=== PATIENT | male | born 1995 | race Two or more races ===

== ENCOUNTER 2021-02-23 16:26 | Emergency (ER) | payer MEDICAID ==
[~2021-02-23] VITALS: Ht 182.9 cm; Wt 131.5 kg
[2021-02-23 16:41] VITALS: BP 125/71
== END 2021-02-23 17:45 | disposition left against medical advice (07) ==
LOC: ER 16:26
DX: R10.9 Unspecified abdominal pain (principal); R11.0 Nausea; Z53.21 Procedure and treatment not carried out due to patient leaving prior to being seen by health care provider

== ENCOUNTER 2023-06-29 07:25 | Inpatient (IN) | payer MEDICAID, OTHER ==
[~2023-06-29] VITALS: Ht 180.3 cm; Wt 136.3 kg
[2023-06-29] MEDS: methylPREDNISolone SOD SUCC 125 MG/2 ML VL IV ONE (07:38)
[2023-06-29] MEDS: IPRATROPIUM BROM 0.5 MG/2.5ML INH SOL HHN ONE (07:40)
[2023-06-29] MEDS: ALBUTEROL SULF 2.5 MG/0.5ML(0.5%) NEB SOLN HHN ONE ×2 (07:40→09:15)
[2023-06-29 07:53] LABS: Basophils # (auto) 0.1 10 ^3/uL (0-0.2); Basophils % (auto) 0.7 % (0.0-2.0); Eosinophils # (auto) 0.6 10 ^3/uL (0-0.8); Eosinophils % (auto) 7.3 % (0.0-7.0); Hematocrit 48.3 % (41.0-53.0); Hemoglobin 16.3 g/dL (13.5-17.5); Lymphocytes # (auto) 3.3 10 ^3/uL (0.4-5.4); Lymphocytes % (auto) 38.8 % (10.0-50.0); Mean Corpuscular Hemoglobin 29.2 pg (28.0-32.0); Mean Corpuscular Hgb Conc. 33.7 g/dL (32.0-36.0); Mean Corpuscular Volume 86.7 fL (80.0-100.0); Monocytes # (auto) 0.6 10 ^3/uL (0-1.3); Monocytes % (auto) 7.1 % (0.0-12.0); Neutrophils # (auto) 3.9 10 ^3/uL (1.6-8.6); Neutrophils % (auto) 46.1 % (37.0-80.0); Nucleated Red Blood Cells % 0.1 %; Red Blood Cells 5.58 10^6/uL (4.5-5.90); Red Cell Distribution Width 12.9 % (11.8-14.3); White Blood Cell 8.4 10^3/uL (4.4-10.8)
[2023-06-29 07:58] LABS: Chloride 109 mmol/L (98-107); Potassium 4.3 mmol/L (3.5-5.1); Sodium 141 mmol/L (136-145)
[2023-06-29 07:59] LABS: Anion Gap 8 (5-15); Carbon Dioxide 24 mmol/L (20-30)
[2023-06-29 08:00] LABS: Calcium 9.5 mg/dL (8.5-10.1)
[2023-06-29 08:04] LABS: BUN/Creatinine Ratio 10.5 (10.0-20.0); Blood Urea Nitrogen 11 mg/dL (9-23); Glucose 100 mg/dL (74-106)
[2023-06-29 09:00] VITALS: O2SAT 95
[2023-06-29] MEDS ORDERED: DOCUSATE SOD 100 MG CAP PO PRN (09:30)
[2023-06-29] MEDS ORDERED: ONDANSETRON HCL 4 MG/2 ML VIAL IV PRN (09:30)
[2023-06-29] MEDS ORDERED: MORPHINE SULFATE INJ 2 MG/ml SYRG IV PRN (09:30)
[2023-06-29] MEDS: SODIUM CHLORIDE 0.9% 1,000 ML IV ONE (09:43)
[2023-06-29] MEDS: SODIUM CHLORIDE 0.9% 1,000 ML IV SCH (09:55)
[2023-06-29] MEDS: MAGNESIUM SULFATE 1GM/100ML 100 ML IV SCH (09:55)
[2023-06-29] MEDS: ALBUTEROL SULF 2.5 MG/0.5ML(0.5%) NEB SOLN NEB SCH (10:00)
[2023-06-29] MEDS: IPRATROPIUM BROM 0.5 MG/2.5ML INH SOL NEB SCH (10:00)
[2023-06-29 10:48] VITALS: BP 156/105; PULSE 106; RESP 22; TEMP 97.8; O2SAT 96
[2023-06-29] MEDS ORDERED: methylPREDNISolone SOD SUCC 125 MG/2 ML VL IV SCH (14:00)
[2023-07-01] MEDS ORDERED: ALBU108A5 IN (01:00)
== END 2023-06-30 12:42 | disposition left against medical advice (07) | DRG 133 ==
LOC: ER 07:25 → OVERFLOW 10:05
PROVIDERS: ADMIT Internal Medicine; ATTEND Emergency Medicine
DX: J96.00 Acute respiratory failure, unspecified whether with hypoxia or hypercapnia (principal); J45.901 Unspecified asthma with (acute) exacerbation; F12.10 Cannabis abuse, uncomplicated; F17.210 Nicotine dependence, cigarettes, uncomplicated; Z53.29 Procedure and treatment not carried out because of patient's decision for other reasons
CPT/HCPCS: 36415; 71046; 80048; 85025; 94640; 94644; 96361; 96374; G0378

== ENCOUNTER 2023-06-30 22:38 | Emergency (ER) | payer MEDICAID, OTHER ==
[~2023-06-30] VITALS: Ht 180.3 cm; Wt 146.1 kg
[2023-06-30] MEDS: IPRATROPIUM BROM 0.5 MG/2.5ML INH SOL NEB ONE (23:02)
[2023-06-30] MEDS: ALBUTEROL SULF 2.5 MG/0.5ML(0.5%) NEB SOLN NEB ONE (23:02)
[2023-06-30] MEDS: DexAMETHasone SOD PHOS 10MG/1ML VIAL INJ IM ONE (23:15)
[2023-07-01] MEDS: ALBUTEROL SULF 2.5 MG/0.5ML(0.5%) NEB SOLN NEB ONE (00:09)
[2023-07-01] MEDS: IPRATROPIUM BROM 0.5 MG/2.5ML INH SOL NEB ONE (00:09)
[2023-07-01] MEDS ORDERED: ALBU108A5 IN (01:00)
[2023-07-01 01:19] VITALS: BP 132/95; PULSE 90; RESP 24; TEMP 98.3; O2SAT 100
== END 2023-07-01 01:21 | disposition home or self-care (01) ==
LOC: ER 22:38
DX: J45.909 Unspecified asthma, uncomplicated (principal); F17.210 Nicotine dependence, cigarettes, uncomplicated; R07.89 Other chest pain
CPT/HCPCS: 71045; 94640; 96372; 99284; J1100; J7644